=== PATIENT | female | born 1975 | race Caucasian/White ===

== ENCOUNTER 2023-08-09 18:10 | Emergency (ER) | payer MEDICAID ==
[~2023-08-09] VITALS: Ht 147.3 cm; Wt 58.5 kg
[2023-08-09 18:25] VITALS: BP 128/68; PULSE 72; RESP 18; TEMP 97.3; O2SAT 99
[2023-08-09] MEDS ORDERED: KETOROLAC 15 MG/ML VIAL IM ONE (21:35)
[2023-08-09] MEDS ORDERED: ACETAMINOPHEN EXTRA STRENGTH 500 MG TAB PO ONE (21:35)
== END 2023-08-09 22:10 | disposition home or self-care (01) ==
LOC: MED 18:10
DX: S93.492A Sprain of other ligament of left ankle, initial encounter (principal); S83.8X2A Sprain of other specified parts of left knee, initial encounter; W18.30XA Fall on same level, unspecified, initial encounter; Y93.89 Activity, other specified; Y92.89 Other specified places as the place of occurrence of the external cause; Y99.8 Other external cause status
CPT/HCPCS: 73562; 73610; 96372; 99284; J1885

== ENCOUNTER 2023-08-29 11:15 | Emergency (ER) | payer MEDICAID ==
[~2023-08-29] VITALS: Ht 147.3 cm; Wt 57.2 kg
[2023-08-29 11:24] VITALS: BP 117/77; PULSE 77; RESP 18; TEMP 97.4; O2SAT 99
[2023-08-29] MEDS ORDERED: KETOROLAC 30 MG/ML VIAL IM ONE (12:45)
[2023-08-29] MEDS ORDERED: KETOROLAC 30 MG/ML VIAL ONE (14:16)
[2023-08-29 14:50] VITALS: BP 112/77; PULSE 78; RESP 18; TEMP 98.2; O2SAT 100
== END 2023-08-29 12:35 | disposition home or self-care (01) ==
LOC: MED 11:15
DX: S83.92XA Sprain of unspecified site of left knee, initial encounter (principal); M25.572 Pain in left ankle and joints of left foot; W18.39XA Other fall on same level, initial encounter; Y92.89 Other specified places as the place of occurrence of the external cause; Y93.89 Activity, other specified; Y99.8 Other external cause status
CPT/HCPCS: 73562; 73610; 81025; 96372; 99284; J1885